=== PATIENT | male | born 1965 | race African-American/Black ===

== ENCOUNTER 2017-04-21 19:58 | Emergency (ER) | payer MEDICAID, OTHER ==
[~2017-04-21] VITALS: Ht 175.3 cm; Wt 86.0 kg
[2017-04-21] MEDS ORDERED: BACITRACIN ZINC OINT UDPKT TOP ONE (22:15)
[2017-04-21] MEDS ORDERED: IBUPROFEN 600MG TABLET PO ONE (22:15)
[2017-04-21] MEDS ORDERED: TETANUS, DIPHTHERIA, PERTUSSIS VAC/PF 0.5ML (>7YR OLD) IM ONE (22:15)
[2017-04-21] MEDS ORDERED: LIDOCAINE HCL 1% 20ML VIAL (Pyxis) INJ MC ONE (22:30)
[2017-04-21] MEDS ORDERED: LIDOCAINE HCL/PF 1% 10 MG/ML 5ML VIAL IJ NR (22:45)
[2017-04-22 01:16] VITALS: BP 131/65
== END 2017-04-22 01:19 | disposition home or self-care (01) ==
LOC: ER 21:24
DX: L02.415 Cutaneous abscess of right lower limb (principal); L72.3 Sebaceous cyst
CPT/HCPCS: 10060; 90471; 90715; 99283; J3490; Z7610

== ENCOUNTER 2017-05-09 11:05 | Emergency (ER) | payer MEDICAID ==
[~2017-05-09] VITALS: Ht 175.3 cm; Wt 91.0 kg
[2017-05-09 13:00] VITALS: BP 125/74
== END 2017-05-09 13:22 | disposition home or self-care (01) ==
LOC: ER 12:25
DX: L02.212 Cutaneous abscess of back [any part, except buttock and flank] (principal)
CPT/HCPCS: 10060; 99283

== ENCOUNTER 2017-05-10 15:22 | Emergency (ER) | payer MEDICAID ==
[~2017-05-10] VITALS: Ht 175.3 cm; Wt 91.0 kg
[2017-05-10 17:51] VITALS: BP 120/71
[2017-05-10] MEDS ORDERED: BACITRACIN ZINC OINT UDPKT TOP ONE (18:45)
== END 2017-05-10 19:10 | disposition home or self-care (01) ==
LOC: ER 16:37
DX: Z48.00 Encounter for change or removal of nonsurgical wound dressing (principal)
CPT/HCPCS: 99282

== ENCOUNTER 2018-06-30 15:48 | Emergency (ER) | payer BC, MEDICAID ==
[~2018-06-30] VITALS: Ht 175.3 cm; Wt 91.0 kg
[2018-06-30 16:08] VITALS: BP 139/82
== END 2018-06-30 17:49 | disposition home or self-care (01) ==
LOC: ER 15:48
DX: R21 Rash and other nonspecific skin eruption (principal)
CPT/HCPCS: 99282; 99283

== ENCOUNTER 2019-09-06 11:11 | Emergency (ER) | payer BC, MEDICAID ==
[~2019-09-06] VITALS: Ht 175.3 cm; Wt 102.0 kg
[2019-09-06 12:29] VITALS: BP 130/91
== END 2019-09-06 12:30 | disposition home or self-care (01) ==
LOC: ER 11:11
DX: S80.862A Insect bite (nonvenomous), left lower leg, initial encounter (principal); L25.9 Unspecified contact dermatitis, unspecified cause; W57.XXXA Bitten or stung by nonvenomous insect and other nonvenomous arthropods, initial encounter; Y93.89 Activity, other specified; Y92.89 Other specified places as the place of occurrence of the external cause; Y99.8 Other external cause status
CPT/HCPCS: 99283

== ENCOUNTER 2020-08-22 09:01 | Emergency (ER) | payer BC ==
[~2020-08-22] VITALS: Ht 175.3 cm; Wt 73.0 kg
[2020-08-22 09:05] VITALS: BP 126/85
[2020-08-22] MEDS ORDERED: CLIN300C12 MT (09:57)
== END 2020-08-22 10:06 | disposition home or self-care (01) ==
LOC: ER 09:01
DX: L02.01 Cutaneous abscess of face (principal)
CPT/HCPCS: 99283